=== PATIENT | female | born 1990 | race Caucasian/White ===

== ENCOUNTER 2021-01-25 20:05 | Emergency (ER) | payer OTHER ==
[2021-01-25 20:34] VITALS: BP 125/78; PULSE 74; TEMP 98.6; BMI 33.3
[2021-01-25] MEDS ORDERED: AMOX TR/POT CLAV 500MG/125MG TABLETS (FP) PO ONE (20:37)
[2021-01-25] MEDS ORDERED: KETOROLAC TROMETHAMINE 60 MG/2 ML VIAL IM ONE (20:37)
[2021-01-25] MEDS ORDERED: KETOROLAC TROMETHAMINE 60 MG/2 ML VIAL ONE (20:39)
[2021-01-25] MEDS ORDERED: AMOX TR/POT CLAV 500MG/125MG TABLETS (FP) ONE (20:39)
== END 2021-01-25 20:51 | disposition home or self-care (01) ==
LOC: FER 20:05
PROC: 3E0233Z Introduction of Anti-inflammatory into Muscle, Percutaneous Approach (ICD-10-PCS; principal; 2021-01-25)
DX: K02.9 Dental caries, unspecified (principal)
CPT/HCPCS: 99284-25

== ENCOUNTER 2022-11-17 11:56 | Emergency (ER) | payer OTHER ==
[2022-11-17 12:14] VITALS: TEMP 99.1; BMI 36.3
[2022-11-17 13:13] LABS: ALBUMIN 3.9 g/dl (3.4-5.0); ALK PHOS 67 U/L (45-117); ANION GAP 2 MMOL/L (8-16); BILIRUBIN,TOTAL 0.2 mg/dl (0.2-1); CALCIUM 8.9 mg/dl (8.5-10); CHLORIDE 107 mmol/L (98-107); CO2 30 mmol/L (21-32); GLUCOSE,RANDOM 115 mg/dl (74-106); HEMATOCRIT 42.6 % (32.4-45.2); HEMOGLOBIN 14.3 G/dL (10.7-15.3); MCH 27.5 pg (25.7-33.7); MCHC 33.5 g/dl (32.0-36.0); MEAN CELL VOLUME 82.2 fl (80-96); MEAN PLT VOLUME 8.8 fl (7.5-11.1); PLATELET COUNT 352.8 10^3/uL (134-434); RBC 5.18 10^6/uL (3.60-5.2); RDW 14.2 % (11.6-15.6); SGOT/AST 16 U/L (15-37); SGPT/ALT 10 U/L (13-61); SODIUM 139 mmol/L (136-145); WHITE BLOOD COUNT 9.5 10^3/uL (4.0-10.8)
[2022-11-17 13:22] LABS: PLATELET ESTIMATE ADEQUATE
[2022-11-17 14:14] VITALS: BP 107/74; PULSE 79; RESP 18
== END 2022-11-17 14:18 | disposition home or self-care (01) ==
LOC: FER 11:56
DX: R00.2 Palpitations (principal)
CPT/HCPCS: 36415; 71275-TC; 80053; 84443; 84484; 84703; 85027; 93005; 99285-25; Q9967

== ENCOUNTER 2023-05-29 21:37 | Emergency (ER) | payer OTHER ==
[2023-05-29 21:47] VITALS: BP 123/86; PULSE 100; RESP 16; TEMP 97.9; BMI 36.3
[2023-05-29] MEDS ORDERED: SULFAMETHOXAZOLE/TRIMETHOPRIM 800MG/160MG D.S. TABLET PO ONE (21:52)
[2023-05-29] MEDS ORDERED: PHENAZOPYRIDINE HCL 100 MG TABLET (FP) ONE (21:57)
[2023-05-29] MEDS ORDERED: SULFAMETHOXAZOLE/TRIMETHOPRIM 800MG/160MG D.S. TABLET ONE (21:57)
[2023-05-29] MEDS ORDERED: PHENAZOPYRIDINE HCL 100 MG TABLET (FP) PO ONE (21:58)
[2023-05-29 22:28] LABS: EPITHELIAL CELLS FEW /hpf
== END 2023-05-29 22:08 | disposition home or self-care (01) ==
LOC: FER 21:37
DX: R35.0 Frequency of micturition (principal); R39.15 Urgency of urination; N30.90 Cystitis, unspecified without hematuria
CPT/HCPCS: 81003; 81015; 87086; 87186; 99284-25

== ENCOUNTER 2023-12-30 01:08 | Emergency (ER) | payer OTHER ==
[2023-12-30 01:17] VITALS: BP 146/79; PULSE 82; RESP 18; BMI 36.3
[2023-12-30] MEDS ORDERED: KETOROLAC TROMETHAMINE 60 MG/2 ML VIAL ONE (01:17)
[2023-12-30] MEDS: KETOROLAC TROMETHAMINE 60 MG/2 ML VIAL IM ONE (01:21)
== END 2023-12-30 01:29 | disposition home or self-care (01) ==
LOC: FER 01:08
PROC: 3E0233Z Introduction of Anti-inflammatory into Muscle, Percutaneous Approach (ICD-10-PCS; principal; 2023-12-30)
DX: K02.9 Dental caries, unspecified (principal); K08.89 Other specified disorders of teeth and supporting structures
CPT/HCPCS: 99284-25